=== PATIENT | male | born 1990 | race Hispanic/Latino ===

== ENCOUNTER 2022-01-27 18:08 | Emergency (ER) | payer BC, OTHER ==
[2022-01-27] MEDS ORDERED: Lidocaine 1% PF 5 ML VIAL ONE (19:15)
[2022-01-27] MEDS ORDERED: Triple Antibiotic Oint 1 GM Packet ONE (21:01)
== END 2022-01-27 21:12 | disposition home or self-care (01) ==
LOC: ERS 18:08
DX: L02.413 Cutaneous abscess of right upper limb (principal)
CPT/HCPCS: 10060